=== PATIENT | female | born 1940 | race Caucasian/White ===

== ENCOUNTER 2016-09-18 22:13 | Emergency (ER) | payer MEDICARE ==
[~2016-09-18 22:13] MED LIST: ACETAMINOPHEN325 MG PO; CALCIUM 600 +1 EAC3 PO; HYZAAR 100-251 EACH PO; KLOR-CON-1010 MEQ PO; LASIX20 MG PO; LIPITOR20 MG PO; NEURONTIN600 MG PO; OMEPRAZOLE20 MG PO; TOPROL XL25 MG PO
== END 2016-09-18 23:01 | disposition left against medical advice (07) ==
LOC: ER 22:13
DX: Z53.21 Procedure and treatment not carried out due to patient leaving prior to being seen by health care provider (principal)

== ENCOUNTER 2016-09-19 08:09 | Emergency (ER) | payer MEDICARE | END 2016-09-19 09:25 | disposition home or self-care (01) | LOC: ER 08:09 | DX: S76.012A Strain of muscle, fascia and tendon of left hip, initial encounter (principal); S76.912A Strain of unspecified muscles, fascia and tendons at thigh level, left thigh, initial encounter; E11.9 Type 2 diabetes mellitus without complications; I11.0 Hypertensive heart disease with heart failure; I50.9 Heart failure, unspecified; Z90.710 Acquired absence of both cervix and uterus; Z96.641 Presence of right artificial hip joint; Z79.899 Other long term (current) drug therapy; Z88.8 Allergy status to other drugs, medicaments and biological substances; X50.3XXA Overexertion from repetitive movements, initial encounter | CPT/HCPCS: 73502-LT ==